=== PATIENT | male | born 1995 | race Caucasian/White ===

== ENCOUNTER → 2018-05-01 | Outpatient (CLI) | payer MEDICAID ==
--- NOTE | 2018-05-04 15:19 | CPEEG ---
[f rep st] ELECTROENCEPHALOGRAM 4-HOUR VIDEO EEG. DATE OF STUDY: 05/01/2018 DATE OF INTERPRETATION: 05/04/2018 INTERPRETATION: This 4-hour video EEG recording is abnormal due to the following reasons: 1. There were sharply contoured waveforms of uncertain clinical significance over the left posterior temporal head region and probable rare, potentially epileptogenic abnormalities over the left posterior temporal head regions. 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 2. There was a moderately severe degree of hemispheric slowing and asymmetry over the left, maximal left posterior temporal. These findings are consistent with the patient's known previous history of neurotrauma in these regions. The patient did not have any clinical events or electrographic seizures during the video EEG monitoring session. REPORT: This 4-hour video EEG contains 10 Hz alpha activity over the right posterior head region. There is a moderately severe degree of hemispheric slowing over the left composed of intermittent theta and delta activity, maximal over the left posterior temporal head region. In addition, there was asymmetry of the left hemisphere with loss of normal background activity and slowing of frequencies. There were frequent sharply contoured waveforms of uncertain clinical significance over the left temporal head region, maximal left posterior temporal. In addition, there were rare, more clear-cut spikes and sharp waves over the left posterior temporal head region. For an example, see Epoch 1110. There were no electrographic seizures or clinical events recorded during the video EEG monitoring session. /[id number]/MODL MTDD
== END ==
LOC: FCPNEURO 08:35
PROVIDERS: ATTEND Psychiatry & Neurology Neurology
DX: R94.01 Abnormal electroencephalogram [EEG] (principal); R56.9 Unspecified convulsions